=== PATIENT | male | born 1950 | race Caucasian/White ===

== ENCOUNTER 2021-09-07 18:42 | Inpatient (IN) ==
[2021-09-07 19:10] LABS: ABS Basophils 0.1 10^3/ul (0-0.2); ABS Eosinophils 0.2 10^3/ul (0-0.6); ABS Lymphocytes 1.4 10^3/ul (1.0-4.8); ABS Monocytes 0.6 10^3/ul (0-0.8); ABS Neutrophils 5.4 10^3/ul (1.5-7.7); Eosinophil % 2.9 %; Hematocrit 45 % (42-52); Hemoglobin 15.6 g/dL (14.0-18.0); Lymphocyte % 18.1 %; Mean Corpuscular HGB Conc 34 g/dL (31-36); Mean Corpuscular Hemoglobin 33 pg (27-31); Mean Corpuscular Volume 96 fL (80-94); Mean Platelet Volume 8.6 fL (7.4-10.4); Platelet Count 144 10^3/uL (150-450); Red Blood Count 4.74 10^6 /uL (4.18-5.48); Red Cell Distribution Width 13 % (10-15); White Blood Count 7.6 10^3/uL (3.5-10.8)
[2021-09-07 19:28] LABS: Albumin 4.1 g/dL (3.2-5.2); Albumin/Globulin Ratio 1.3 (1-3); C Reactive Protein 19.5 mg/L (<8.01); Calcium 8.9 mg/dL (8.6-10.3); Globulin 3.1 g/dL (2-4); Potassium 3.8 mmol/L (3.5-5.0); Total Bilirubin 1.1 mg/dL (0.2-1.0); Total Protein 7.2 g/dL (6.4-8.9); eGFR CKD-EPI 91.9 (>60)
[2021-09-07] MEDS ORDERED: Lactated Ringers 1000 ml BAG 1,000 ML IV ONE (20:40)
[2021-09-07] MEDS ORDERED: Iohexol 300 (CONTRAST) 10 ML SDV IV ONE (20:44)
[2021-09-07] MEDS ORDERED: Morphine 4 MG/ML VIAL (1 ml) IV ONE (22:51)
[2021-09-07] MEDS ORDERED: PEG 3000 GI LAVAGE 1 GALLON PO ONE (23:24)
[2021-09-07] MEDS ORDERED: NS 0.9% 1000 ml BAG 1,000 ML IV SCH (23:45)
[2021-09-07] MEDS ORDERED: Magnesium Hydroxide LIQ 30 ML UDC PO PRN (23:50)
[2021-09-07] MEDS ORDERED: Ondansetron 4 mg VIAL 2 MG/ML 2 ml VIAL IV PRN (23:50)
[2021-09-07] MEDS ORDERED: Polyethylene Glycol 3350 17 GM PACKET PO PRN (23:56)
[2021-09-07] MEDS ORDERED: Senna TAB 8.6 mg TAB PO PRN (23:56)
[2021-09-08] MEDS ORDERED: Nicotine GUM 4MG FRUIT FLAVOR PO PRN (01:10)
[2021-09-08 03:10] LABS: ABS Eosinophils 0.2 10^3/ul (0-0.6); ABS Lymphocytes 0.7 10^3/ul (1.0-4.8); ABS Monocytes 0.7 10^3/ul (0-0.8); Eosinophil % 2.3 %; Hematocrit 44 % (42-52); Hemoglobin 15.1 g/dL (14.0-18.0); Lymphocyte % 8.9 %; Mean Corpuscular HGB Conc 35 g/dL (31-36); Mean Corpuscular Hemoglobin 33 pg (27-31); Mean Corpuscular Volume 95 fL (80-94); Mean Platelet Volume 8.1 fL (7.4-10.4); Platelet Count 127 10^3/uL (150-450); Red Blood Count 4.62 10^6 /uL (4.18-5.48); Red Cell Distribution Width 13 % (10-15); White Blood Count 7.6 10^3/uL (3.5-10.8)
[2021-09-08 05:33] LABS: Albumin 3.7 g/dL (3.2-5.2); Albumin/Globulin Ratio 1.3 (1-3); Calcium 8.6 mg/dL (8.6-10.3); Globulin 2.8 g/dL (2-4); HDL Cholesterol 34.2 mg/dL; Potassium 4.2 mmol/L (3.5-5.0); Total Bilirubin 1.4 mg/dL (0.2-1.0); Total Protein 6.5 g/dL (6.4-8.9); eGFR CKD-EPI 92.9 (>60)
[2021-09-08] MEDS: Heparin 5000 UNITS/ML 1 mL VIAL SUBCUT SCH ×3 (05:51→21:29)
[2021-09-08] MEDS: Aspirin EC 81 mg TAB.EC (enteric coated) PO SCH (10:22)
[2021-09-08 12:09] LABS: Urine Appearance Clear; Urine Bilirubin Negative (Negative); Urine Blood Negative (Negative); Urine Color Amber; Urine Glucose Negative (Negative); Urine Ketones Negative (Negative); Urine Nitrite Negative (Negative); Urine Protein 1+(30 mg/dL) (Negative); Urine Urobilinogen Negative (Negative)
[2021-09-08 12:18] LABS: Urine Bacteria Absent (Absent); Urine Red Blood Cell Trace(0-2/hpf) (Absent); Urine White Blood Cell Trace(0-5/hpf) (Absent)
[2021-09-08 15:26] LABS: ABS Eosinophils 0.2 10^3/ul (0-0.6); ABS Lymphocytes 1.2 10^3/ul (1.0-4.8); ABS Monocytes 0.7 10^3/ul (0-0.8); ABS Neutrophils 3.3 10^3/ul (1.5-7.7); Eosinophil % 4.3 %; Hematocrit 40 % (42-52); Hemoglobin 13.6 g/dL (14.0-18.0); Lymphocyte % 22.4 %; Mean Corpuscular HGB Conc 34 g/dL (31-36); Mean Corpuscular Hemoglobin 33 pg (27-31); Mean Corpuscular Volume 96 fL (80-94); Mean Platelet Volume 9.1 fL (7.4-10.4); Nucleated Red Blood Cells % 0.1; Platelet Count 128 10^3/uL (150-450); Red Blood Count 4.16 10^6 /uL (4.18-5.48); Red Cell Distribution Width 13 % (10-15); White Blood Count 5.5 10^3/uL (3.5-10.8)
[2021-09-09 05:40] LABS: ABS Eosinophils 0.3 10^3/ul (0-0.6); ABS Lymphocytes 1.3 10^3/ul (1.0-4.8); ABS Monocytes 0.6 10^3/ul (0-0.8); ABS Neutrophils 2.7 10^3/ul (1.5-7.7); Eosinophil % 5.3 %; Hematocrit 40 % (42-52); Hemoglobin 13.5 g/dL (14.0-18.0); Lymphocyte % 27.4 %; Mean Corpuscular HGB Conc 34 g/dL (31-36); Mean Corpuscular Hemoglobin 32 pg (27-31); Mean Corpuscular Volume 96 fL (80-94); Mean Platelet Volume 8.7 fL (7.4-10.4); Nucleated Red Blood Cells % 0.1; Platelet Count 119 10^3/uL (150-450); Red Blood Count 4.16 10^6 /uL (4.18-5.48); Red Cell Distribution Width 13 % (10-15); White Blood Count 4.9 10^3/uL (3.5-10.8)
[2021-09-09] MEDS: Heparin 5000 UNITS/ML 1 mL VIAL SUBCUT SCH (05:54)
[2021-09-09 05:55] LABS: Albumin 3.3 g/dL (3.2-5.2); Albumin/Globulin Ratio 1.3 (1-3); C Reactive Protein 50.81 mg/L (<8.01); Calcium 8.4 mg/dL (8.6-10.3); Globulin 2.5 g/dL (2-4); Magnesium 1.8 mg/dL (1.9-2.7); Total Bilirubin 1.7 mg/dL (0.2-1.0); Total Protein 5.8 g/dL (6.4-8.9); eGFR CKD-EPI 85.6 (>60)
[2021-09-09 06:55] LABS: Erythrocyte Sed Rate 20 mm/Hr (0-19)
[2021-09-09] MEDS: Aspirin EC 81 mg TAB.EC (enteric coated) PO SCH (08:51)
[2021-09-09 11:32] VITALS: BP 108/62
[2021-09-10 22:17] LABS: Calprotectin 92.3 mcg/g
== END 2021-09-09 15:00 | disposition home or self-care (01) | DRG 387 ==
LOC: ED 18:42 → EDHOLD 18:42 → SUATTDRO 23:50 → SSU 09-08 04:15
PROVIDERS: ADMIT Internal Medicine; ATTEND Hospitalist

== ENCOUNTER 2021-09-21 06:51 | Observation (INO) ==
[2021-09-21] MEDS ORDERED: Morphine 4 MG/ML VIAL (1 ml) IV ONE (07:52)
[2021-09-21] MEDS ORDERED: Lactated Ringers 1000 ml BAG 1,000 ML IV ONE (07:52)
[2021-09-21] MEDS ORDERED: Ondansetron 4 mg VIAL 2 MG/ML 2 ml VIAL IV ONE (07:52)
[2021-09-21 08:24] LABS: ABS Eosinophils 0.1 10^3/ul (0-0.6); ABS Lymphocytes 0.5 10^3/ul (1.0-4.8); ABS Monocytes 0.7 10^3/ul (0-0.8); ABS Neutrophils 8.7 10^3/ul (1.5-7.7); Eosinophil % 0.8 %; Hematocrit 45 % (42-52); Hemoglobin 15.5 g/dL (14.0-18.0); Lymphocyte % 4.5 %; Mean Corpuscular HGB Conc 34 g/dL (31-36); Mean Corpuscular Hemoglobin 33 pg (27-31); Mean Corpuscular Volume 95 fL (80-94); Mean Platelet Volume 8.5 fL (7.4-10.4); Platelet Count 174 10^3/uL (150-450); Red Blood Count 4.76 10^6 /uL (4.18-5.48); Red Cell Distribution Width 13 % (10-15)
[2021-09-21 08:42] LABS: Albumin 3.7 g/dL (3.2-5.2); Albumin/Globulin Ratio 1.3 (1-3); C Reactive Protein 5.31 mg/L (<8.01); Calcium 8.7 mg/dL (8.6-10.3); Globulin 2.8 g/dL (2-4); Potassium 3.8 mmol/L (3.5-5.0); Total Protein 6.5 g/dL (6.4-8.9); eGFR CKD-EPI 56.6 (>60)
[2021-09-21] MEDS ORDERED: Iodixanol (CONTRAST) 320 MG/ML 100 ML SDV IV ONE (09:32)
[2021-09-21] MEDS ORDERED: Polyethylene Glycol 3350 17 GM PACKET PO PRN (10:10)
[2021-09-21] MEDS ORDERED: Morphine 4 MG/ML VIAL (1 ml) IV PRN (10:35)
[2021-09-21] MEDS ORDERED: Ondansetron 4 mg VIAL 2 MG/ML 2 ml VIAL IV PRN (11:41)
[2021-09-21] MEDS ORDERED: PEG 3000 GI LAVAGE 1 GALLON PO ONE ×2 (11:45→15:00)
[2021-09-21] MEDS ORDERED: Polyethylene Glycol 3350 17 GM PACKET PO ONE (14:15)
[2021-09-21] MEDS: Enoxaparin 40 MG/0.4 ML SYR SUBCUT SCH (16:50)
[2021-09-21 20:41] LABS: Urine Appearance Clear; Urine Bilirubin Negative (Negative); Urine Blood Negative (Negative); Urine Color Yellow; Urine Glucose Negative (Negative); Urine Ketones Negative (Negative); Urine Nitrite Negative (Negative); Urine Protein Negative (Negative); Urine Specific Gravity 1.029 (1.002-1.030); Urine Urobilinogen Negative (Negative)
[2021-09-21] MEDS: NS 0.9% 1000 ml BAG 1,000 ML IV SCH (23:13)
[2021-09-22 05:58] LABS: ABS Eosinophils 0.3 10^3/ul (0-0.6); ABS Lymphocytes 1.3 10^3/ul (1.0-4.8); ABS Monocytes 0.6 10^3/ul (0-0.8); ABS Neutrophils 3.8 10^3/ul (1.5-7.7); Eosinophil % 5.7 %; Hematocrit 41 % (42-52); Lymphocyte % 22.1 %; Mean Corpuscular HGB Conc 34 g/dL (31-36); Mean Corpuscular Hemoglobin 33 pg (27-31); Mean Corpuscular Volume 96 fL (80-94); Mean Platelet Volume 8.6 fL (7.4-10.4); Nucleated Red Blood Cells % 0.1; Platelet Count 154 10^3/uL (150-450); Red Blood Count 4.28 10^6 /uL (4.18-5.48); Red Cell Distribution Width 13 % (10-15); White Blood Count 6.1 10^3/uL (3.5-10.8)
[2021-09-22] MEDS ORDERED: PEG 3000 GI LAVAGE 1 GALLON PO ONE (06:00)
[2021-09-22 06:04] LABS: INR 1.16 (0.86-1.15)
[2021-09-22 06:22] LABS: Calcium 8.7 mg/dL (8.6-10.3); Potassium 4.4 mmol/L (3.5-5.0); eGFR CKD-EPI 75.9 (>60)
[2021-09-22] MEDS: Aspirin EC 81 mg TAB.EC (enteric coated) PO SCH (08:30)
[2021-09-22] MEDS: NS 0.9% 1000 ml BAG 1,000 ML IV SCH (09:50)
[2021-09-22] MEDS ORDERED: fentaNYL 100 mcg/2 ml 50 MCG/ML VIAL ONE (14:52)
[2021-09-22] MEDS ORDERED: Midazolam 10 mg/10 ml VIAL 1 mg/ml 10 ml VIAL (10 mg) ONE (14:52)
[2021-09-22] MEDS: Enoxaparin 40 MG/0.4 ML SYR SUBCUT SCH (17:39)
[2021-09-23 04:21] LABS: Urine Osmo 569 mOsm/kg (150-1150)
[2021-09-23] MEDS: Aspirin EC 81 mg TAB.EC (enteric coated) PO SCH (08:10)
[2021-09-23] MEDS: Heparin 5000 UNITS/ML 1 mL VIAL SUBCUT SCH ×2 (14:31→21:04)
[2021-09-24] MEDS: Heparin 5000 UNITS/ML 1 mL VIAL SUBCUT SCH (05:16)
[2021-09-24] MEDS: Aspirin EC 81 mg TAB.EC (enteric coated) PO SCH (08:17)
[2021-09-24 10:46] VITALS: BP 122/62
[2021-09-24 18:17] LABS: Calprotectin 166 mcg/g
== END 2021-09-24 11:35 | disposition home or self-care (01) ==
LOC: EDHOLD 06:51 → ED 06:51 → OBSVTOIN 12:09 → SUATTDRO 12:09 → INTOOBSV 12:09 → MED 13:59
PROVIDERS: ADMIT Nurse Practitioner Adult Health; ATTEND Internal Medicine

== ENCOUNTER 2021-10-13 05:34 | Inpatient (IN) ==
[~2021-10-13 05:34] MED LIST: Buffered Lidocaine 1% SYRIN 1 ml INTRADERM ONE; Haloperidol 5 mg/ml SDV IV/IM 5 MG/ML AMP IV SLOW PU PRN; Lactated Ringers 1000 ml BAG 1,000 ML IV SCH; Lidocaine 4 MG/ML IV PREMIX 200 MG/50 ML BAG IV SCH; Naloxone 0.4 mg VIAL 0.4 mg/ml 1 ml VIAL IV PRN; fentaNYL 100 mcg/2 ml 50 MCG/ML VIAL IV PRN
[2021-10-13] MEDS ORDERED: Buffered Lidocaine 1% SYRIN 1 ml INTRADERM ONE (06:00)
[2021-10-13] MEDS ORDERED: Lactated Ringers 1000 ml BAG 1,000 ML IV SCH ×3 (06:00→17:08)
[2021-10-13] MEDS ORDERED: Scopolamine 1 mg/72hr PATCH TRANSDERM ONE (06:00)
[2021-10-13] MEDS ORDERED: Clindamycin 900 MG/D5W BAG 900 MG/50 ML BAG IVPB ONE (06:17)
[2021-10-13] MEDS ORDERED: Scopolamine 1 mg/72hr PATCH ONE (06:17)
[2021-10-13] MEDS ORDERED: Heparin 5000 UNITS/ML 1 mL VIAL ONE (06:17)
[2021-10-13] MEDS ORDERED: Dexamethasone IV 4 MG/ML VIAL 1 ml VIAL ONE ×2 (06:42→07:36)
[2021-10-13] MEDS ORDERED: fentaNYL 250 mcg/5 ml 50 MCG/ML 5 ml VIAL (250 MCG) ONE (06:42)
[2021-10-13] MEDS ORDERED: Propofol 10 MG/ML 20 ML BTL ONE (06:42)
[2021-10-13] MEDS ORDERED: Lidocaine 2% PF 5 ML VIAL ONE (06:42)
[2021-10-13] MEDS ORDERED: Rocuronium 50 mg VIAL 10 mg/ml 5 ml VIAL (50 mg) ONE ×2 (06:42→08:33)
[2021-10-13] MEDS ORDERED: Ondansetron 4 mg VIAL 2 MG/ML 2 ml VIAL ONE (06:42)
[2021-10-13] MEDS ORDERED: Midazolam 2 mg/2 ml VIAL 1 mg/ml 2 ml VIAL (2 mg) ONE (06:42)
[2021-10-13] MEDS ORDERED: Bupivacaine 0.25% EPI 200,000 30 ML SDV ONE (06:51)
[2021-10-13] MEDS ORDERED: GENTAMICIN ADULT IVPB ONE (07:00)
[2021-10-13] MEDS ORDERED: NS 0.9% IVPB ONE (07:00)
[2021-10-13] MEDS ORDERED: Lidocaine 4 MG/ML IV PREMIX 2,000 MG/500 ML BAG IV ONE (07:07)
[2021-10-13] MEDS ORDERED: Phenylephrine IV 10 MG/ML 1 ml VIAL ONE (07:33)
[2021-10-13] MEDS ORDERED: EPHEDrine (Pressors) 50 MG/ML VIAL ONE (07:48)
[2021-10-13] MEDS ORDERED: Labetalol IV 5 MG/ML 20 ml VIAL ONE (08:09)
[2021-10-13] MEDS ORDERED: Ondansetron 4 mg VIAL 2 MG/ML 2 ml VIAL IV PRN (10:41)
[2021-10-13] MEDS ORDERED: HYDROmorphone 0.5 MG/0.5 ML SYRINGE IV SLOW PU PRN (10:41)
[2021-10-13] MEDS ORDERED: Acetaminophen IV 1 GM/100ML 100 ML IV PRN (10:45)
[2021-10-13] MEDS ORDERED: fentaNYL 100 mcg/2 ml 50 MCG/ML VIAL ONE (11:09)
[2021-10-13 17:03] LABS: Hematocrit 43 % (42-52); Mean Corpuscular HGB Conc 35 g/dL (31-36); Mean Corpuscular Hemoglobin 33 pg (27-31); Mean Corpuscular Volume 95 fL (80-94); Mean Platelet Volume 8.1 fL (7.4-10.4); Platelet Count 156 10^3/uL (150-450); Red Blood Count 4.49 10^6 /uL (4.18-5.48); Red Cell Distribution Width 13 % (10-15); White Blood Count 9.1 10^3/uL (3.5-10.8)
[2021-10-13] MEDS ORDERED: NS 0.9% 1000 ml BAG 1,000 ML IV SCH (17:15)
[2021-10-13 17:30] LABS: Potassium 4.4 mmol/L (3.5-5.0)
[2021-10-13 17:36] LABS: eGFR CKD-EPI 75.9 (>60)
[2021-10-13 18:22] LABS: High Sensitivity Troponin 1 Hr < 3 pg/mL (<20)
[2021-10-13] MEDS ORDERED: Lactated Ringers 1000 ml BAG 1,000 ML IV ONE (20:51)
[2021-10-13 21:45] LABS: Hematocrit 37 % (42-52); Hemoglobin 12.7 g/dL (14.0-18.0)
[2021-10-13] MEDS ORDERED: Iohexol 350 (CONTRAST) 500 ML MDV IV ONE (23:03)
[2021-10-14 03:19] LABS: Hematocrit 37 % (42-52); Hemoglobin 12.9 g/dL (14.0-18.0)
[2021-10-14 05:51] LABS: ABS Lymphocytes 0.5 10^3/ul (1.0-4.8); ABS Monocytes 0.7 10^3/ul (0-0.8); ABS Neutrophils 7.2 10^3/ul (1.5-7.7); Hematocrit 37 % (42-52); Hemoglobin 12.6 g/dL (14.0-18.0); Lymphocyte % 6.1 %; Mean Corpuscular HGB Conc 34 g/dL (31-36); Mean Corpuscular Hemoglobin 32 pg (27-31); Mean Corpuscular Volume 94 fL (80-94); Mean Platelet Volume 8.2 fL (7.4-10.4); Platelet Count 129 10^3/uL (150-450); Red Blood Count 3.88 10^6 /uL (4.18-5.48); Red Cell Distribution Width 13 % (10-15); White Blood Count 8.4 10^3/uL (3.5-10.8)
[2021-10-14 06:20] LABS: Calcium 8.8 mg/dL (8.6-10.3); Potassium 4.5 mmol/L (3.5-5.0); eGFR CKD-EPI 79.5 (>60)
[2021-10-14 06:34] LABS: Magnesium 1.7 mg/dL (1.9-2.7)
[2021-10-14] MEDS ORDERED: Magnesium Sulfate 2 gm BAG 2 GM/50 ML BAG IVPB ONE (06:37)
[2021-10-14 06:50] LABS: TSH Ultra Thyroid Stim Horm 0.28 mcIU/mL (0.34-5.60)
[2021-10-14] MEDS ORDERED: Rocuronium 50 mg VIAL 10 mg/ml 5 ml VIAL (50 mg) ONE (07:01)
[2021-10-14] MEDS ORDERED: fentaNYL 100 mcg/2 ml 50 MCG/ML VIAL ONE (07:01)
[2021-10-14] MEDS ORDERED: Propofol 10 MG/ML 20 ML BTL ONE (07:01)
[2021-10-14] MEDS ORDERED: Ondansetron 4 mg VIAL 2 MG/ML 2 ml VIAL ONE ×2 (07:01→07:02)
[2021-10-14] MEDS ORDERED: Dexamethasone IV 4 MG/ML VIAL 1 ml VIAL ONE (07:02)
[2021-10-14] MEDS ORDERED: Midazolam 2 mg/2 ml VIAL 1 mg/ml 2 ml VIAL (2 mg) ONE (07:02)
[2021-10-14] MEDS ORDERED: EPHEDrine (Pressors) 50 MG/ML VIAL ONE (07:02)
[2021-10-14] MEDS ORDERED: Metoclopramide 5 MG/ML VIAL (10 mg) ONE (07:02)
[2021-10-14] MEDS ORDERED: Glycopyrrolate IV 0.2 MG/ML 1 ML VIAL ONE (07:03)
[2021-10-14] MEDS: Heparin 5000 UNITS/ML 1 mL VIAL SUBCUT SCH ×2 (09:03→20:18)
[2021-10-14 10:58] LABS: Free T4 1.09 ng/dL (0.61-1.12)
[2021-10-15] MEDS ORDERED: Benzocaine/Menthol LOZ MT PRN (05:10)
[2021-10-15 06:02] LABS: ABS Eosinophils 0.1 10^3/ul (0-0.6); ABS Lymphocytes 1.6 10^3/ul (1.0-4.8); ABS Monocytes 0.7 10^3/ul (0-0.8); Eosinophil % 1.1 %; Hematocrit 38 % (42-52); Hemoglobin 13.4 g/dL (14.0-18.0); Lymphocyte % 18.6 %; Mean Corpuscular HGB Conc 35 g/dL (31-36); Mean Corpuscular Hemoglobin 33 pg (27-31); Mean Corpuscular Volume 95 fL (80-94); Mean Platelet Volume 8.7 fL (7.4-10.4); Nucleated Red Blood Cells % 0.1; Platelet Count 131 10^3/uL (150-450); Red Blood Count 4.04 10^6 /uL (4.18-5.48); Red Cell Distribution Width 13 % (10-15); White Blood Count 8.5 10^3/uL (3.5-10.8)
[2021-10-15 06:27] LABS: Calcium 8.9 mg/dL (8.6-10.3); Potassium 4.1 mmol/L (3.5-5.0); eGFR CKD-EPI 94.6 (>60)
[2021-10-15 09:01] VITALS: BP 147/77
[2021-10-15] MEDS: Heparin 5000 UNITS/ML 1 mL VIAL SUBCUT SCH (09:42)
== END 2021-10-15 10:30 | disposition home or self-care (01) | DRG 330 ==
LOC: AA 05:34 → SSU 14:16
PROVIDERS: ADMIT Surgery; ATTEND Surgery

== ENCOUNTER 2023-05-03 12:08 | Observation (INO) ==
[2023-05-03] MEDS ORDERED: NS 0.9% 500 ml BAG 500 ML IV ONE (12:20)
[2023-05-03 14:03] LABS: ABS Eosinophils 0.1 10^3/uL (0.0-0.5); ABS Lymphocytes 0.6 10^3/uL (1.0-4.8); ABS Monocytes 0.4 10^3/uL (0.0-1.1); ABS Neutrophils 3.3 10^3/uL (1.5-7.6); Eosinophil % 2.2 %; Hematocrit 27.1 % (38-53); Lymphocyte % 13.5 %; Mean Corpuscular Hemoglobin 25.7 pg (27-33); Mean Corpuscular Hgb Conc 33.3 g/dL (31-36); Mean Corpuscular Volume 77.1 fL (80-97); Mean Platelet Volume 8.1 fL (7.5-11.2); Platelet Count 175 10^3/uL (150-450); Red Blood Count 3.52 10^6/uL (4.06-5.63); Red Cell Distribution Width 17.2 % (12-17); White Blood Count 4.4 10^3/uL (3.6-10.2)
[2023-05-03 14:10] LABS: Albumin 3.5 g/dL (3.2-5.2); Calcium 8.5 mg/dL (8.6-10.3); Total Bilirubin 0.6 mg/dL (0.2-1.0)
[2023-05-03 14:16] LABS: Albumin/Globulin Ratio 1.2 (1-3); Creatinine, Serum 1.1 mg/dL (0.67-1.17); Total Protein 6.5 g/dL (6.4-8.9); eGFR CKD-EPI 71.3 (>60)
[2023-05-03 15:33] LABS: High Sensitivity Troponin 1 Hr 29 pg/mL (<20)
[2023-05-03] MEDS ORDERED: Al Hydrox/Mg Hydrox/Simet LIQ 30 ML UDC PO PRN (16:55)
[2023-05-03 19:36] LABS: TSH Ultra Thyroid Stim Horm 1.26 mcIU/mL (0.34-5.60)
[2023-05-03 19:43] LABS: Ferritin 12.7 ng/mL (24-336)
[2023-05-04 07:12] LABS: ABS Eosinophils 0.4 10^3/uL (0.0-0.5); ABS Lymphocytes 0.9 10^3/uL (1.0-4.8); ABS Monocytes 0.5 10^3/uL (0.0-1.1); Eosinophil % 7.5 %; Hematocrit 27.4 % (38-53); Hemoglobin 9.1 g/dL (13.2-16.3); Lymphocyte % 18.4 %; Mean Corpuscular Hemoglobin 25.6 pg (27-33); Mean Corpuscular Hgb Conc 33.3 g/dL (31-36); Mean Corpuscular Volume 76.8 fL (80-97); Mean Platelet Volume 7.9 fL (7.5-11.2); Platelet Count 186 10^3/uL (150-450); Red Blood Count 3.57 10^6/uL (4.06-5.63); Red Cell Distribution Width 17.1 % (12-17); White Blood Count 4.7 10^3/uL (3.6-10.2)
[2023-05-04 07:26] LABS: Calcium 8.4 mg/dL (8.6-10.3); Creatinine, Serum 0.97 mg/dL (0.67-1.17); Magnesium 1.6 mg/dL (1.9-2.7); Potassium 4.2 mmol/L (3.5-5.0); eGFR CKD-EPI 82.9 (>60)
[2023-05-04] MEDS ORDERED: Enoxaparin 40 MG/0.4 ML SYR SUBCUT SCH (09:00)
[2023-05-04] MEDS ORDERED: Aspirin EC 81 mg TAB.EC (enteric coated) PO SCH (09:00)
[2023-05-04 16:02] VITALS: BP 00/00
== END 2023-05-04 16:01 | disposition left against medical advice (07) ==
LOC: EDHOLD 12:08 → ED 12:08 → EDHOLD 05-04 16:01
PROVIDERS: ADMIT Internal Medicine; ATTEND Internal Medicine

== ENCOUNTER 2023-10-18 11:57 | Inpatient (IN) ==
[2023-10-18 12:34] LABS: ABS Lymphocytes 0.4 10^3/uL (1.0-4.8); ABS Monocytes 0.6 10^3/uL (0.0-1.1); ABS Neutrophils 5.7 10^3/uL (1.5-7.6); ABS Nucleated RBC 0.01 10^3/ul; Eosinophil % 0.7 %; Hematocrit 34.9 % (38-53); Hemoglobin 11.7 g/dL (13.2-16.3); Lymphocyte % 6.1 %; Mean Corpuscular Hemoglobin 27.6 pg (27-33); Mean Corpuscular Hgb Conc 33.4 g/dL (31-36); Mean Corpuscular Volume 82.6 fL (80-97); Mean Platelet Volume 8.3 fL (7.5-11.2); Nucleated Red Blood Cells % 0.1 %/100WBC (0.0-0.8); Platelet Count 349 10^3/uL (150-450); Red Blood Count 4.23 10^6/uL (4.06-5.63); Red Cell Distribution Width 16.7 % (12-17); White Blood Count 6.9 10^3/uL (3.6-10.2)
[2023-10-18 12:44] LABS: Activated Partial Thrombo Time 27.8 seconds (26.0-38.0); INR 1.22 (0.83-1.13)
[2023-10-18] MEDS: Lactated Ringers 1000 ml BAG 1,000 ML IV ONE ×3 (12:48→22:47)
[2023-10-18 12:51] LABS: Albumin 2.8 g/dL (3.2-5.2); Albumin/Globulin Ratio 0.7 (1-3); Calcium 8.1 mg/dL (8.6-10.3); Creatinine, Serum 1.38 mg/dL (0.67-1.17); Potassium 4.3 mmol/L (3.5-5.0); Total Bilirubin 1.5 mg/dL (0.2-1.0); Total Protein 6.8 g/dL (6.4-8.9)
[2023-10-18] MEDS: Morphine 4 MG/ML VIAL (1 ml) IV ONE (13:22)
[2023-10-18] MEDS: Iodixanol (CONTRAST) 320 MG/ML 100 ML SDV IV ONE (15:05)
[2023-10-18] MEDS ORDERED: Morphine 2 MG/ML SYRINGE IV PRN (16:43)
[2023-10-18] MEDS: Morphine 2 MG/ML SYRINGE IV PRN (16:54)
[2023-10-18] MEDS: Pantoprazole VIAL 40 MG VIAL IV ONE (17:11)
[2023-10-18 23:01] LABS: Hematocrit 27.7 % (38-53); Hemoglobin 9.3 g/dL (13.2-16.3)
[2023-10-18] MEDS: Pantoprazole 80 mg in NS BAG 80 MG/250 ML BAG IV SCH (23:13)
[2023-10-19] MEDS: Morphine 2 MG/ML SYRINGE IV PRN (00:59)
[2023-10-19] MEDS ORDERED: Pantoprazole VIAL 40 MG VIAL IV SCH (08:00)
[2023-10-19 09:03] LABS: ABS Basophils 0.1 10^3/uL (0.0-0.1); ABS Eosinophils 0.2 10^3/uL (0.0-0.5); ABS Lymphocytes 0.5 10^3/uL (1.0-4.8); ABS Monocytes 0.6 10^3/uL (0.0-1.1); ABS Neutrophils 3.8 10^3/uL (1.5-7.6); Eosinophil % 3.6 %; Hematocrit 30.2 % (38-53); Hemoglobin 10.1 g/dL (13.2-16.3); Lymphocyte % 9.5 %; Mean Corpuscular Hemoglobin 27.3 pg (27-33); Mean Corpuscular Hgb Conc 33.5 g/dL (31-36); Mean Corpuscular Volume 81.4 fL (80-97); Mean Platelet Volume 8.4 fL (7.5-11.2); Nucleated Red Blood Cells % 0.1 %/100WBC (0.0-0.8); Platelet Count 265 10^3/uL (150-450); Red Blood Count 3.71 10^6/uL (4.06-5.63); Red Cell Distribution Width 16.2 % (12-17)
[2023-10-19 09:53] LABS: .Transferrin 225 mg/dL (203-362); ALT 45 U/L (7-52); Albumin 2.3 g/dL (3.2-5.2); Albumin/Globulin Ratio 0.7 (1-3); Alkaline Phosphatase 745 U/L (35-149); Anion Gap 7 mmol/L (2-16); Blood Urea Nitrogen 40 mg/dL (6-24); CO2 Carbon Dioxide 26 mmol/L (22-32); Calcium 7.9 mg/dL (8.6-10.3); Chloride 104 mmol/L (101-111); Creatinine, Serum 0.96 mg/dL (0.67-1.17); Globulin 3.4 g/dL (2-4); Glucose 75 mg/dL (70-100); Sodium 137 mmol/L (135-145); Total Bilirubin 1.2 mg/dL (0.2-1.0); Total Iron Binding Capacity 315 mcg/dL (250-450); Total Protein 5.7 g/dL (6.4-8.9); eGFR CKD-EPI 83.5 (>60)
[2023-10-19 10:02] LABS: Ferritin 65.4 ng/mL (24-336)
[2023-10-19 10:49] LABS: .Transferrin 220 mg/dL (203-362); Total Iron Binding Capacity 308 mcg/dL (250-450)
[2023-10-19 12:49] LABS: Potassium Redraw 3.6 mmol/L (3.5-5.0)
[2023-10-19] MEDS ORDERED: Polyethylene Glycol 3350 17 GM PACKET PO PRN (17:06)
[2023-10-19] MEDS: Lactated Ringers 1000 ml BAG 1,000 ML IV ONE (17:22)
[2023-10-19] MEDS: Pantoprazole 80 mg in NS BAG 80 MG/250 ML BAG IV SCH (19:25)
[2023-10-20 05:54] LABS: Urine Appearance Clear; Urine Bilirubin Negative (Negative); Urine Blood Negative (Negative); Urine Color Yellow; Urine Glucose Negative (Negative); Urine Ketones Negative (Negative); Urine Nitrite Negative (Negative); Urine Protein Trace (Negative); Urine Specific Gravity 1.026 (1.002-1.030); Urine Urobilinogen Negative (Negative)
[2023-10-20 07:21] LABS: ABS Eosinophils 0.2 10^3/uL (0.0-0.5); ABS Lymphocytes 0.6 10^3/uL (1.0-4.8); ABS Monocytes 0.8 10^3/uL (0.0-1.1); ABS Neutrophils 3.9 10^3/uL (1.5-7.6); Eosinophil % 3.5 %; Hematocrit 27.9 % (38-53); Hemoglobin 9.5 g/dL (13.2-16.3); Lymphocyte % 11.5 %; Mean Corpuscular Hemoglobin 27.6 pg (27-33); Mean Corpuscular Hgb Conc 33.9 g/dL (31-36); Mean Corpuscular Volume 81.6 fL (80-97); Mean Platelet Volume 8.3 fL (7.5-11.2); Platelet Count 219 10^3/uL (150-450); Red Blood Count 3.42 10^6/uL (4.06-5.63); Red Cell Distribution Width 16.1 % (12-17); White Blood Count 5.5 10^3/uL (3.6-10.2)
[2023-10-20 07:56] LABS: Albumin 2.1 g/dL (3.2-5.2); Albumin/Globulin Ratio 0.7 (1-3); Calcium 7.4 mg/dL (8.6-10.3); Creatinine, Serum 0.87 mg/dL (0.67-1.17); Globulin 3.1 g/dL (2-4); Potassium 4.3 mmol/L (3.5-5.0); Total Bilirubin 0.9 mg/dL (0.2-1.0); Total Protein 5.2 g/dL (6.4-8.9); eGFR CKD-EPI 91.1 (>60)
[2023-10-20 08:39] LABS: Body Fluid Appearance Cloudy; Body Fluid Color Yellow; Body Fluid Source Peritonial Fluid
[2023-10-20] MEDS: Senna TAB 8.6 mg TAB PO SCH (08:42)
[2023-10-20 08:52] LABS: Body Fluid Total Nucleated 351 /mcL
[2023-10-20 12:42] LABS: Body Fluid Mono 53 %; Body Fluid Other Cells 5; Body Fluid Total Cells Counted 200
[2023-10-20] MEDS: Albumin Human 25% 25 GM/100 ML BTL IV SCH (15:00)
[2023-10-20 15:22] LABS: Lactate Dehydrogenase, BF 82 U/L
[2023-10-20] MEDS ORDERED: fentaNYL 100 mcg/2 ml 50 MCG/ML VIAL ONE (16:24)
[2023-10-20] MEDS ORDERED: Midazolam 10 mg/10 ml VIAL 1 mg/ml 10 ml VIAL (10 mg) ONE (16:24)
[2023-10-20] MEDS: Lactated Ringers 1000 ml BAG 1,000 ML IV ONE (19:32)
[2023-10-20] MEDS: fentaNYL 100 mcg/2 ml 50 MCG/ML VIAL IV SLOW PU ONE (19:32)
[2023-10-20] MEDS: Midazolam 10 mg/10 ml VIAL 1 mg/ml 10 ml VIAL (10 mg) IV SLOW PU ONE (19:32)
[2023-10-20] MEDS: Pantoprazole VIAL 40 MG VIAL IV SCH (20:23)
[2023-10-21 06:47] LABS: ABS Eosinophils 0.2 10^3/uL (0.0-0.5); ABS Lymphocytes 0.5 10^3/uL (1.0-4.8); ABS Monocytes 0.5 10^3/uL (0.0-1.1); ABS Neutrophils 3.1 10^3/uL (1.5-7.6); Eosinophil % 3.8 %; Hematocrit 29.3 % (38-53); Hemoglobin 9.8 g/dL (13.2-16.3); Lymphocyte % 12.6 %; Mean Corpuscular Hemoglobin 27.1 pg (27-33); Mean Corpuscular Hgb Conc 33.3 g/dL (31-36); Mean Corpuscular Volume 81.2 fL (80-97); Mean Platelet Volume 8.1 fL (7.5-11.2); Nucleated Red Blood Cells % 0.1 %/100WBC (0.0-0.8); Platelet Count 194 10^3/uL (150-450); Red Blood Count 3.61 10^6/uL (4.06-5.63); Red Cell Distribution Width 16.2 % (12-17); White Blood Count 4.3 10^3/uL (3.6-10.2)
[2023-10-21 07:07] LABS: Albumin 2.5 g/dL (3.2-5.2); Albumin/Globulin Ratio 0.9 (1-3); Calcium 7.7 mg/dL (8.6-10.3); Creatinine, Serum 0.72 mg/dL (0.67-1.17); Globulin 2.8 g/dL (2-4); Potassium 4.2 mmol/L (3.5-5.0); Total Bilirubin 1.1 mg/dL (0.2-1.0); Total Protein 5.3 g/dL (6.4-8.9); eGFR CKD-EPI 96.5 (>60)
[2023-10-21 08:58] VITALS: BP 125/67
[2023-10-21 10:06] LABS: Albumin, BF 1.1 g/dL; Fluid Type, Albumin PERITONEAL FLUID; Fluid Type, Protein, Total PERITONEAL FLUID; Glucose, BF 95 mg/dL; Total Protein, BF 2.4 g/dL
== END 2023-10-21 12:50 | disposition home or self-care (01) | DRG 378 ==
LOC: ED 11:57 → EDHOLD 16:13 → SUATTDRO 16:13 → MED 10-19 12:40
PROVIDERS: ADMIT Hospitalist; ATTEND Internal Medicine